=== PATIENT | male | born 1950 | race Caucasian/White ===

== ENCOUNTER → 2022-05-14 | Outpatient (CLI) | payer MEDICARE ==
--- NOTE | 2022-05-14 15:06 | NM ---
EXAMINATION TYPE: NM bone scan whole body DATE OF EXAM: 05/14/2022 COMPARISON: NONE HISTORY: Pain Delayed whole-body scanning was performed following the injection of 21.7 mCi Tc 99m MDP. Images acq uired 3.5 hours post injection. FINDINGS: Intense abnormal uptake involving the axis of the skull. Abnormal uptake involving the maxilla and mandible likely related to periodontal disease. Intense abnormal uptake involving the right humeral head. Intense abnormal uptake involving the bilateral rib cage. Intense abnormal uptake involving the right anterior acetabulum and iliac bone. Numerous areas of intense abnormal uptake throughout the thoracic and lumbar spine. Abnormal uptake involving the sternum. Abnormal uptake involving the hands and feet. This likely is post arthritic. IMPRESSION: 1. There are bilateral rib cage, sternal and vertebral, right humeral, right iliac bone, and right ac etabular intense abnormal uptake. Metastasis in the differential diagnosis. Post traumatic etiology n ot excluded and x-ray correlation recommended.
== END | disposition home or self-care (01) ==
LOC: RADNMMAIN 10:08
PROVIDERS: ATTEND Internal Medicine
DX: R91.8 Other nonspecific abnormal finding of lung field (principal); R93.7 Abnormal findings on diagnostic imaging of other parts of musculoskeletal system
CPT/HCPCS: 78306; A9503